=== PATIENT | male | born 1960 | race Caucasian/White ===

== ENCOUNTER 2018-08-07 14:43 | Inpatient (IN) | payer MEDICARE, BC ==
[~2018-08-07] VITALS: Ht 182.9 cm; Wt 78.9 kg
[~2018-08-07 14:43] MED LIST: Duoneb 2.5-0.5 Mg/3 INH
[2018-08-07 14:44] VITALS: BP 122/77
[2018-08-07] MEDS ORDERED: NORVASC5 MG PO (14:50)
[2018-08-07] MEDS ORDERED: XANAX 0.5 MG0.5 MG PO (14:51)
[2018-08-07] MEDS ORDERED: VISTARIL 25 MG25 M1 PO (14:51)
[2018-08-07] MEDS ORDERED: BACTRIM DS TAB1 EACH PO (14:51)
[2018-08-07] MEDS ORDERED: PREDNISONE 10 M10 MG PO (14:52)
[2018-08-07] MEDS ORDERED: BROVANA15 MCG/2 M INH (14:52)
[2018-08-07] MEDS ORDERED: SINGULAIR 10 MG10 M1 PO (14:52)
[2018-08-07] MEDS ORDERED: ALBUTEROL SULFAT2 MG PO (14:53)
[2018-08-07] MEDS ORDERED: BUDESONIDE0.25 MG/2 INH (14:53)
[2018-08-07 15:21] LABS: HEMATOCRIT 36.4 % (42.0-52.0); HEMOGLOBIN 12.3 gm/dL (14.0-18.0); MCH 32.2 pg (26.0-34.0); MCHC 33.6 g/dL (28.0-37.0); MCV 95.8 fL (80.0-100.0); MPV 7.1 fl. (7.2-11.1); NUCLEATED RBCS 0 /100WBC; PLATELET COUNT* 270 thou/uL (150-400); RDW-CV 13.3 % (10.5-14.5); WBC 11.5 thou/uL (4.0-11.0)
[2018-08-07 15:29] LABS: BE 5.2 mmol/L (-2 to +3); PCO2 44.7 mmHg (35.0-45.0); PO2 106.3 mmHg (75.0-100.0); pH 7.445 (7.340-7.450)
[2018-08-07 15:38] LABS: ALBUMIN 3.3 g/dL (3.4-5.0); CALCIUM 8.9 mg/dL (8.5-10.1); CREATININE 0.7 mg/dL (0.6-1.3); POTASSIUM 4.5 mmol/L (3.5-5.1); TOTAL BILIRUBIN 0.2 mg/dL (<0.1-1.0); TOTAL PROTEIN 6.5 g/dL (6.4-8.2)
[2018-08-07 15:40] LABS: ABSOLUTE LYMPHOCYTES 0.3 thou/uL (0.8-5.3); ABSOLUTE MONOCYTES 0.6 thou/uL (0.0-1.2); ABSOLUTE NEUTROPHILS 10.6 thou/uL (1.6-8.1)
[2018-08-07 15:41] LABS: PLATELET ESTIMATE ADEQUATE
[2018-08-07 18:47] VITALS: BP 98/59
[2018-08-07 19:30] VITALS: BP 125/71
[2018-08-08] VITALS: BP 120/73
[2018-08-08] MEDS ORDERED: MELATONIN1 MG PO (03:39)
[2018-08-08 03:54] LABS: AMP/METHAMP Negative (Negative); BARBITURATES Negative (Negative); BENZODIAZEPINES Negative (Negative); COCAINE Negative (Negative); METHADONE Negative (Negative); OPIATES Negative (Negative); PCP Negative (Negative); THC Negative (Negative)
[2018-08-08 04:00] VITALS: BP 116/71
[2018-08-08 04:05] LABS: INFLUENZA A ANTIGEN None Detected (None Detect); INFLUENZA B ANTIGEN None Detected (None Detect)
[2018-08-08 05:28] LABS: ABSOLUTE LYMPHOCYTES 0.3 thou/uL (0.8-5.3); ABSOLUTE MONOCYTES 0.1 thou/uL (0.0-1.2); ABSOLUTE NEUTROPHILS 9.1 thou/uL (1.6-8.1); BASOPHILS 0.1 %; HEMATOCRIT 33.8 % (42.0-52.0); HEMOGLOBIN 11.5 gm/dL (14.0-18.0); LYMPHOCYTES 2.7 %; MCH 32.5 pg (26.0-34.0); MCHC 34.1 g/dL (28.0-37.0); MCV 95.3 fL (80.0-100.0); MONOCYTES 1.3 %; MPV 7.3 fl. (7.2-11.1); NUCLEATED RBCS 0 /100WBC; PLATELET COUNT* 264 thou/uL (150-400); POLYS 95.9 %; RBC 3.54 mil/uL (4.50-6.00); RDW-CV 13.3 % (10.5-14.5); WBC 9.4 thou/uL (4.0-11.0)
[2018-08-08 05:37] LABS: CALCIUM 8.5 mg/dL (8.5-10.1); CREATININE 0.7 mg/dL (0.6-1.3); POTASSIUM 4.6 mmol/L (3.5-5.1)
[2018-08-08 08:00] VITALS: BP 116/94
--- NOTE | 2018-08-08 11:29 | EKG ---
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: MS : 1960 Requested By: Faizan Torres Order Number: [id number] MD: Wesly Reyes Measurements Intervals [place] Rate: 109 P: 84 AR: 144 QRS: 13 QRSD: 94 T: 78 QT: 322 QTc: 434 Interpretive Statements Sinus tachycardia Ventricular premature complex Right atrial enlargement RSR' in V1 or V2, probably normal variant Artifact in lead(s) V3,V4,V5 and baseline wander in lead(s) V2 No previous ECG available for comparison Electronically Signed On 08-08-2018 11:28:49 CDT by Wesly Reyes [email or web address] <ELECTRONICALLY SIGNED> By: Wesly Reyes MD, FACC 08/08/18 1128 1447 1447 Wesly Reyes MD, FAC /EPI
[2018-08-08 12:00] VITALS: BP 142/88
[2018-08-08 16:00] VITALS: BP 123/71
[2018-08-08 20:00] VITALS: BP 122/73
[2018-08-09] VITALS: BP 115/67
[2018-08-09 04:00] VITALS: BP 121/70
[2018-08-09 05:33] LABS: ABSOLUTE LYMPHOCYTES 0.4 thou/uL (0.8-5.3); BASOPHILS 0.1 %; HEMATOCRIT 37.1 % (42.0-52.0); HEMOGLOBIN 12.5 gm/dL (14.0-18.0); LYMPHOCYTES 2.6 %; MCHC 33.7 g/dL (28.0-37.0); MCV 95.1 fL (80.0-100.0); MONOCYTES 6.6 %; MPV 7.1 fl. (7.2-11.1); NUCLEATED RBCS 0 /100WBC; PLATELET COUNT* 293 thou/uL (150-400); POLYS 90.7 %; RBC 3.91 mil/uL (4.50-6.00); RDW-CV 13.5 % (10.5-14.5); WBC 14.3 thou/uL (4.0-11.0)
[2018-08-09 05:59] LABS: ALBUMIN 3.4 g/dL (3.4-5.0); CALCIUM 9.1 mg/dL (8.5-10.1); CREATININE 0.7 mg/dL (0.6-1.3); POTASSIUM 4.4 mmol/L (3.5-5.1); TOTAL BILIRUBIN 0.2 mg/dL (<0.1-1.0); TOTAL PROTEIN 6.9 g/dL (6.4-8.2)
[2018-08-09 09:20] VITALS: BP 108/67
[2018-08-09 13:47] VITALS: BP 132/79
[2018-08-09 18:30] VITALS: BP 117/71
[2018-08-09 20:00] VITALS: BP 125/69
[2018-08-10] VITALS: BP 122/69
[2018-08-10 04:00] VITALS: BP 118/70
[2018-08-10 08:00] VITALS: BP 136/78
[2018-08-10 11:49] VITALS: BP 130/72
--- NOTE | 2018-08-10 14:24 | CON ---
[address] [address] CONSULTATION Name: KELSIE WELLSN Room: [address] IN M.R.#: [id number] Admission: 08/07/18 Attend Phys: Rajiv Pablo MD Discharge: Date of : 60 Report #: [id number] THIS REPORT FOR: //name// CC: Rajiv Pablo [facility] DATE OF SERVICE: 08/08/2018 REASON FOR EVALUATION: COPD exacerbation, cough, recurrent COPD exacerbation. REFERRING PHYSICIAN: Rajiv Pablo MD. HISTORY OF PRESENT ILLNESS: The patient is a 57-year-old gentleman with past medical history of COPD, recurrent exacerbation, bronchial asthma. He presented with worsening cough, shortness of breath, wheezing, has been using his nebulizer every 4 hours with minimal improvement. He states over the last 1 year, had multiple exacerbations with recurrent admissions to [facility], had at least 2 exacerbations within the last year. He states that his COPD and asthma is worse during fall and spring. It is mainly worse in July. He feels he gets admitted every July, this time has been wheezing, not improving with home inhaler. At home, he is on Brovana, Pulmicort nebulizer as well as DuoNeb, which he is using every 4 hours. When he first came in, he felt he partially improved, still had shortness of breath. Today, when he went to the restroom, had significant shortness of breath requiring treatment with bronchodilator. He denies any fever or chills, had a productive cough with yellowish mucus, which is of minimal amount. He has previous history of bronchial asthma. He is allergic to pets including dogs and cats. Unfortunately, continues to own dogs including cats and dogs and his symptoms are exacerbated mainly with cats. Unfortunately, he continues to smoke. He smokes half pack per day, has been smoking for 30 years. He had a recent pulmonary function test at the [facility], which we do not have. However, he was told it is around 20% his lung function. He was started on Daliresp in the past; however, had diarrhea and had to be stopped. PAST MEDICAL HISTORY: COPD, previous history of pneumonia. ALLERGIES: ALLERGIC TO PENICILLIN, QUETIAPINE. HOME MEDICATION: As above include DuoNeb, which he is using at least q.i.d., Norvasc, hydroxyzine for anxiety and Xanax. Prednisone, which he is on 10 mg. He is on Brovana twice a day, Singulair and Pulmicort. PAST MEDICAL HISTORY: Congestive heart failure, EF 45%, [place], [place] [address] CONSULTATION Name: KELSIE WELLS Room: [address] IN M.R.#: [id number] Admission: 08/07/18 Attend Phys: Rajiv Pablo MD Discharge: Date of : 60 Report #: [id number] FAMILY HISTORY: No pertinent family history. SOCIAL HISTORY: Smoking for the last 30 years. He is down to half pack per day, attempted to quit not successful. He did not tolerate Wellbutrin in the past. No active alcohol abuse. REVIEW OF SYSTEMS: A 12-point review of systems: ENT: Denies runny nose, or congestion. PSYCHIATRIC: Has history of significant anxiety. He has been on hydroxyzine and Xanax as needed. No history of fever or chills. Otherwise, immunology history of atopy as above. History of bronchial asthma. Otherwise, 14-point review of systems as above. PHYSICAL EXAMINATION: GENERAL: The patient is pleasant, not in distress; however, he has shortness of breath with conversation. Looks anxious, alert, and oriented. EYES: Pupils equal and mucous membranes moist. NECK: Supple. PULMONARY : Diminished breath sounds; however, no wheezing. CARDIOVASCULAR: Regular rhythm. ABDOMEN: Soft, nontender. EXTREMITIES: No edema. NEUROLOGIC: No focal deficit. LABORATORY AND OTHER DATABASE: Chest x-ray, which I reviewed, showed hyperinflation, no acute infiltrate. Arterial blood gas pH 7.4, pCO2 borderline 44.7, pO2 of 106. This is on 2 liters. Influenza antigen was negative. ASSESSMENT AND PLAN: 1. Asthma, chronic obstructive pulmonary disease overlap syndrome with exacerbation. History of very severe, recurrent exacerbation and shortness of breath on minimal exertion. Unfortunately, continues to smoke. Unfortunately, has multiple allergies and not compliant with avoidance. At this time, need to improve his allergy avoidance. He is allergic to pets. Discussed with him, if he has better avoidance or donate his pets to other family members. He is not interested this time. Discussed with him smoking cessation. He agrees with the patches. At this time, chronic obstructive pulmonary disease exacerbation with asthma, agree with high dose steroids, especially with history of asthma component. We will obtain IgE level. Recurrent exacerbation of chronic obstructive pulmonary disease. He is a 57-year-old. Honestly at this time, he may be considered for lung transplant, [address] [address] CONSULTATION Name: KELSIE WELLS Room: [address] IN .Agustin.#: [id number] Admission: 08/07/18 Attend Phys: Rajiv Pablo MD Discharge: Date of : 60 Report #: [id number] waiting for pulmonary function tests. However, he continues to smoke, need to quit smoking. At this time, he felt Daliresp for recurrent exacerbation, need to consider chronic azithromycin treatment; however, will need to have hearing test before that as well as an EKG. At this time, we will do that as outpatient. 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 The patient agrees to followup. At this time, continue bronchodilator treatment every 4 hours and recommend every 2 hours as needed with the severity of his symptoms. Recommend to optimize treatment for anxiety, which can be associated with chronic obstructive pulmonary disease and actually worsen symptoms. Continue Solu-Medrol today every 8 hours. May decrease tomorrow if he is stable. This was discussed with Dr. Pablo. Thank you for the consultation. We will continue to follow up with you. <ELECTRONICALLY SIGNED> By: Annel Alves MD 08/10/18 1424 1310 [id number] Alves MD /nt
[2018-08-10 15:28] VITALS: BP 117/77
[2018-08-10 20:00] VITALS: BP 116/70
[2018-08-11] VITALS (7 sets, daily range): BP systolic 122–136; BP diastolic 55–79
[2018-08-12] VITALS: BP 99/56
[2018-08-12 04:00] VITALS: BP 117/63
[2018-08-12 08:09] VITALS: BP 129/76
[2018-08-12] MEDS ORDERED: PREDNISONE 10 M10 MG PO (11:48)
[2018-08-12] MEDS ORDERED: CEFDINIR300 MG PO (11:55)
[2018-08-12 12:00] VITALS: BP 136/78
[2018-08-12 12:32] VITALS: BP 129/76
[2018-08-12] MEDS ORDERED: MUCINEX1200 MG PO (12:32)
== END 2018-08-12 14:29 | disposition home or self-care (01) | DRG 177 ==
LOC: M.ERS 14:43 → M.2W 16:54 → M.TBA-ER 16:54 → M.2W 19:25
PROVIDERS: Nurse Practitioner Family; ADMIT Internal Medicine
DX: J15.6 Pneumonia due to other Gram-negative bacteria (principal); J96.20 Acute and chronic respiratory failure, unspecified whether with hypoxia or hypercapnia; R65.11 Systemic inflammatory response syndrome (SIRS) of non-infectious origin with acute organ dysfunction; E43 Unspecified severe protein-calorie malnutrition; J44.1 Chronic obstructive pulmonary disease with (acute) exacerbation; J44.0 Chronic obstructive pulmonary disease with (acute) lower respiratory infection; F17.210 Nicotine dependence, cigarettes, uncomplicated; F41.9 Anxiety disorder, unspecified; I50.9 Heart failure, unspecified; Z86.73 Personal history of transient ischemic attack (TIA), and cerebral infarction without residual deficits; Z99.81 Dependence on supplemental oxygen; Z88.0 Allergy status to penicillin; Z88.8 Allergy status to other drugs, medicaments and biological substances; Z91.19 Patient's noncompliance with other medical treatment and regimen; Z68.23 Body mass index [BMI] 23.0-23.9, adult; Z79.52 Long term (current) use of systemic steroids